=== PATIENT | female | born 1980 | race Hispanic/Latino ===

== ENCOUNTER 2019-01-06 10:16 | Inpatient (IN) | payer OTHER, SELFPAY ==
[2019-01-06 12:12] LABS: Hemoglobin 6.9 g/dL (12.0-16.0); Mean Corpuscular HGB CONC 29.3 g/dL (32.0-36.0); Mean Corpuscular Hemoglobin 17.9 pg (27.0-31.0); Mean Corpuscular Volume 61.3 fL (78.0-98.0); Mean Platelet Volume 4.8 fL (7.4-10.4); Platelet Count 415 thou/uL (130-400); RBC Distribution Width 18.5 % (11.5-14.5); Red Blood Cell (RBC) Count 3.83 mill/uL (4.20-5.40); White Blood Cell (WBC) Count 4.5 thou/uL (4.8-10.8)
[2019-01-06 12:38] LABS: #Lymphocytes 1.7 thou/uL (1.20-3.40); #Monocytes 0.3 thou/uL (0.11-0.59); #Neutrophils 2.4 thou/uL (1.40-6.50); %Basophils 0.7 % (0.0-1.0); %Eosinophils 0.9 % (0.0-10.0); %Lymphocytes 38.7 % (21.0-51.0); %Monocytes 6.9 % (0.0-10.0); %Neutrophils 52.9 % (42.0-75.0); Anion Gap 8 mmol/L (10-20); Anisocytosis SLIGHT = 6-15 cells (100X) (0-5/hpf); BUN (Urea Nitrogen) 5 mg/dL (7.0-18.7); Calc. Creatinine Clearance 0 mL/min (70-130); Calcium 8.8 mg/dL (7.8-10.44); Carbon Dioxide 25 mmol/L (22-29); Chloride 109 mmol/L (98-107); Elliptocytes SLIGHT = 2-5 cells (100X) (0-1/hpf); Estimated GFR-MDRD 90; Glucose 102 mg/dL (70-105); Hypochromia MODERATE=16-30 cells (100X) (0-5/hpf); Iron 12 ug/dL (50-170); Iron Binding Capacity, Total 475 mcg/dL (265-497); MDiff Complete? YES; Microcytosis MODERATE=15-30 cells (100X) (0-5/hpf); Ovalocytes SLIGHT = 2-5 cells (100X) (0-1/hpf); Platelet Morphology Comment Appears Increased; Polychromasia SLIGHT = 2-3 cells (100X) (0-2/hpf); Potassium 3.4 mmol/L (3.5-5.1); Reflex for Review?? YES; Sodium 139 mmol/L (136-145); Tear Drops SLIGHT = 2-5 cells (100X) (0-1/hpf)
[2019-01-06] MEDS ORDERED: Iron Sucrose Complex 200 MG in Sodium Chloride 0.9% 250 ML 250 ML IVPB SCH (15:15)
[2019-01-06] MEDS ORDERED: Ondansetron ODT 4 MG TAB PO PRN (15:15)
[2019-01-06] MEDS ORDERED: Bisacodyl 10 MG SUPP PR PRN (15:15)
[2019-01-06] MEDS ORDERED: Calcium Carbonate 500 MG ChewTAB PO PRN (15:15)
[2019-01-06] MEDS ORDERED: Loperamide HCl 2 MG CAP PO PRN (15:15)
[2019-01-06] MEDS ORDERED: Sodium Chloride 0.65% Nasal 44 ML BOT EA NARE PRN (15:15)
[2019-01-06] MEDS ORDERED: Cepastat Lozenges 1 LOZ PO PRN (15:15)
[2019-01-06] MEDS ORDERED: Acetaminophen 325 MG TAB PO PRN (15:15)
[2019-01-06] MEDS ORDERED: HYDROcodone/Acetaminophen 5/325 mg Tablet PO PRN (15:15)
[2019-01-06] MEDS ORDERED: Senokot S 8.6-50 MG TAB PO PRN (15:15)
[2019-01-06] MEDS ORDERED: Diabetic Tussin 200 MG/10 ML UDCUP PO PRN (15:15)
[2019-01-06] MEDS ORDERED: Loratadine 10 MG TAB PO PRN (15:15)
[2019-01-06] MEDS ORDERED: hydrALAZINE 20 MG/ML VIAL SLOW IVP PRN (15:15)
[2019-01-06] MEDS ORDERED: Zolpidem Tartrate 5 MG TAB PO PRN (15:15)
[2019-01-06] MEDS ORDERED: Artificial Tears 18 DROP/0.9 ML EA EYE PRN (15:15)
[2019-01-06] MEDS ORDERED: Ondansetron PF 4 MG/2 ML Vial IVP PRN (15:15)
[2019-01-06] MEDS ORDERED: Potassium Chloride 20 MEQ TAB PO SCH (15:45)
--- NOTE | 2019-01-06 15:59 | HP ---
PRIMARY CARE PHYSICIAN: [facility]. REASON FOR ADMISSION: Symptomatic anemia. HISTORY OF PRESENT ILLNESS: A 38-year-old female with no significant medical history, who was sent from [facility] for low hemoglobin. The patient reports that for last few weeks, she was feeling dyspnea on exertion, fatigue, tired, dizziness. She was feeling dizzy whenever she was bent over to pick something up and then stand up. She denies any chest pain, palpitation, or syncope. She denies any melena or hematochezia. She also denies any heavy menstrual period. She does have lower abdominal discomfort. She denies any UTI symptoms. The patient is taking iron pills, despite that her hemoglobin has not improved. The patient denies any weight loss. She denies any NSAID abuse. She denies any hematemesis or hematochezia. She does not have any chronic health problems including fever, joint pain, or rash. The patient's primary care physician repeated blood test and she was found with anemia, and today in the emergency room, her hemoglobin is 6.9. The patient is being admitted for further evaluation. REVIEW OF SYSTEMS: CONSTITUTIONAL: Negative for weight loss or gain, ability to conduct usual activities. SKIN: Negative for rash, itching. EYES: Negative for double vision, pain. ENT/MOUTH: Negative for nose bleeding, neck stiffness, pain, tenderness. CARDIOVASCULAR: Negative for palpitations, dyspnea on exertion, orthopnea. RESPIRATORY: Negative for shortness of breath, wheezing, cough, hemoptysis, fever or night sweats. GASTROINTESTINAL: Negative for poor appetite, abdominal pain, heartburn, nausea, vomiting, constipation, or diarrhea. GENITOURINARY: Negative for urgency, frequency, dysuria, nocturia. MUSCULOSKELETAL: Negative for pain, swelling. NEUROLOGIC/PSYCHIATRIC: Negative for anxiety, depression. ALLERGY/IMMUNOLOGIC: Negative for skin rash, bleeding tendency. Please see my HPI for pertinent positives and negatives. All other review of systems reviewed and negative except as mentioned in HPI. ALLERGIES: NO KNOWN DRUG ALLERGIES. CURRENT HOME MEDICATION: Iron one tablet p.o. daily. PAST MEDICAL HISTORY: Chronic iron deficiency anemia, dyslipidemia. PAST SURGICAL HISTORY: x2. PAST PSYCHIATRIC HISTORY: Reviewed and negative. SOCIAL HISTORY: The patient denies any tobacco, alcohol, or illicit drug abuse. FAMILY HISTORY: No family history of coronary artery disease, stroke, or cancer. EMERGENCY ROOM COURSE: Reviewed. PHYSICAL EXAMINATION: VITAL SIGNS: On arrival, blood pressure 110/68, pulse 80, respiratory rate 16, temperature 98.5, saturation 99% on room air. Weight 69 kg. GENERAL: The patient is currently alert and awake, in no obvious acute distress. HEENT: Head; normocephalic and atraumatic. Eyes; conjunctivae are pale, no nystagmus. ENT; oropharynx within normal limits, pale mucous membrane. NECK: Supple. No JVD. No thyromegaly. No carotid bruit. No jugular venous distention. LUNGS: Clear to auscultation without any rhonchi or rales. CARDIAC: S1 and S2, regular. Soft and systolic murmur noted. No gallop. No rub. ABDOMEN: Soft. Bowel sounds present. Nontender. Nondistended. No organomegaly. No mass. No suprapubic tenderness. BACK: Unremarkable. No CVA tenderness. EXTREMITIES: Upper extremities; passive movement of all joints are normal. Lower extremity; no edema, good distal pulsation. SKIN: No skin rash. HEMATOLOGIC: No lymphadenopathy. PSYCHIATRIC: Normal affect. NEUROLOGIC: Nonfocal examination. SIGNIFICANT LABORATORY DATA: CBC; WBC 4.5, hemoglobin 6.9, platelet 415. BMP; sodium 139, potassium 3.4, chloride 109, carbon dioxide 25, BUN 5, creatinine 0.72, glucose 102, and calcium 8.8. Iron 12, TIBC 475, ferritin 2.64. ASSESSMENT AND PLAN: 1. Severe symptomatic anemia. The patient has iron deficiency anemia, most likely chronic blood loss. The patient denies any heavy menstrual period. The patient does not have any classic history of any blood loss. At this point, we will check stool for guaiac. We will consult Gastroenterology for endoscopic evaluation. We will also obtain ultrasound pelvis to rule out uterine fibroid. The patient will be given blood transfusion as well as parenteral iron infusion. Upon discharge, the patient will continue iron supplementation. We will continue with Pepcid 20 mg p.o. b.i.d. We will also check thyroid function test. 2. Hypokalemia. We will replace potassium chloride 40 mEq p.o. daily. 3. Obesity. Dietary education given. Weight loss education given. Healthy lifestyle measure discussed with the patient. 4. Deep venous thrombosis prophylaxis, SCD boots. No Lovenox because of anemia. 5. Gastrointestinal prophylaxis. Pepcid 20 mg p.o. b.i.d. CODE STATUS: The patient is full code. The patient does not have any surrogate decision maker. DISPOSITION PLAN: Based on clinical course, we are expecting the patient to stay in hospital 24 to 48 hours. Plan of care discussed with the patient in detail. Job ID: [id number]
[2019-01-06] MEDS ORDERED: Iron, Sodium Ferric Gluconate 250 MG in Sodium Chloride 0.9% 100 ML IVPB SCH (16:00)
[2019-01-06 16:24] VITALS: BMI 28.7
[2019-01-06] MEDS: Ferrous Sulfate 325 MG TAB PO SCH (17:07)
[2019-01-06] MEDS ORDERED: GoLYTELY 4,000 ml Bottle PO SCH (17:15)
[2019-01-06 18:12] LABS: Bilirubin Negative (Negative); Blood, Urine Small (Negative); Clarity CLEAR (Clear); Glucose, Urine (Dipstick) Negative (Negative); Leukocyte Negative (Negative); Nitrite Negative (Negative); Protein, Urine (Dipstick) Negative (Neg-Trace); Specific Gravity, Urine 1.009 (1.002-1.036); Urobilinogen 0.2 mg/dL (0.2-1.0)
[2019-01-06 18:14] LABS: Bacteria/HPF Rare-Few HPF (None Seen); Hyaline Casts/LPF 0-3 HYALINE CAST LPF (0-3 Hyaline); Squamous Epithelial 0-3 HPF (0-3); WBC/HPF None Seen HPF (0-3)
[2019-01-06] MEDS: Famotidine 20 MG TAB PO SCH (20:06)
--- NOTE | 2019-01-07 00:09 | CON ---
DATE OF CONSULTATION: 01/06/2019 REQUESTING PHYSICIAN: Dr. Jenkins. REASON FOR CONSULTATION: Iron deficiency anemia. HISTORY OF PRESENT ILLNESS: Ms. Shonna Melo is a very pleasant 38-year-old woman with a history of x2. Her last delivery was almost 5 years ago. She has no other significant past medical or surgical history. She says she took iron supplementation for a few months after her last , but otherwise had taken no medications recently. Over the past couple months, she was found to be anemic. She has been taking oral iron supplementation once daily on an outpatient basis for the past couple of months. She reports that her menstrual periods were heavy for about a three month period earlier this year, but for the last 3 months she has had normal menstrual periods lasting only 3 days, not particularly heavy. She denies any overt bleeding from anywhere else. There is no epistaxis. No hematemesis, no melena, no hematochezia, no gross hematuria. Over the past several weeks, she has been having increasing fatigue, dizziness and dyspnea on exertion. There has been no chest pain. No abdominal pain. No food intolerance. No nausea or vomiting. She was found to be anemic at her [facility] today and was sent to the emergency department for further evaluation. Upon arrival, hemoglobin was found to be 6.9, this is microcytic with an MCV of 61.3. Ferritin is low at 2.64, iron 12. She has been hemodynamically stable, otherwise asymptomatic, currently receiving RBC transfusion, resting comfortably. She says she ate only a tiny bit of breakfast this morning and has not had anything since then. She denies any nonsteroidal anti-inflammatory drug abuse and a pelvic ultrasound has been ordered as well as GI consultation. PAST MEDICAL HISTORY: x2, iron deficiency anemia. ALLERGIES: NO KNOWN DRUG ALLERGIES. OUTPATIENT MEDICATIONS: Iron 1 tablet daily. SOCIAL HISTORY: No tobacco, alcohol, or drug use. FAMILY HISTORY: Negative for gastrointestinal illness or malignancy. REVIEW OF SYSTEMS: Full review of systems including constitutional, head, eyes, ears, nose, throat, GI, , cardiovascular, respiratory, musculoskeletal, neurologic systems is negative except as noted in the HPI. I saw the patient today with the assistance of a telemedicine senior php software developer. PHYSICAL EXAMINATION: VITAL SIGNS: Temperature 98.3, pulse 70, blood pressure 114/75, respirations 20 per minute, 100% oxygen saturation on room air. GENERAL: A 38-year-old woman resting in bed comfortably, in no distress. SKIN: She is a bit pale. No jaundice. No rashes were palpable. EYES: No scleral icterus. Extraocular movements intact. ENT: Mucous membranes moist. No oral lesions. LYMPH: No submandibular or supraclavicular lymphadenopathy. THYROID: Nontender to palpation. HEART: Regular rate and rhythm. LUNGS: Clear to auscultation bilaterally. ABDOMEN: Flat bowel sounds, active, soft, nontender to palpation throughout. EXTREMITIES: No peripheral edema. VESSELS: Radial pulses 2+ bilaterally. NEUROLOGIC: Cranial nerves 2-12 intact bilaterally. No focal deficits. LABORATORY STUDIES: Hemoglobin 6.9, MCV 61.3, ferritin 2.64, iron 12, TIBC 475, WBC 4.5, platelets 415, BUN 5, creatinine 0.72. ASSESSMENT AND PLAN: Iron deficiency anemia. The patient has clear severe iron deficiency anemia in the context of intermittently heavy menstrual periods and no primary gastrointestinal symptoms. We discussed possible reasons for iron deficiency anemia. My high suspicion would be that this is secondary to menstrual losses. We do also need to consider the possibility of an occult gastrointestinal bleeding lesion or iron malabsorption, particularly given the persistence of the anemia despite iron supplementation over the past couple of months. My understanding is that she will be having a pelvic ultrasound for some gynecologic workup. For our part, we will plan on endoscopic investigation with EGD and colonoscopy tomorrow after bowel preparation tonight. We will plan to obtain duodenal biopsies on the EGD, to rule out celiac disease. The patient understands and agrees with the plan. Further recommendations following EGD and colonoscopy tomorrow. Please call anytime with questions or concerns. Thank you for the consultation. Job ID: [id number]
[2019-01-07 05:23] LABS: ALT (SGPT) 11 U/L (8-55); AST (SGOT) 14 U/L (5-34); Albumin 3.9 g/dL (3.5-5.0); Alkaline Phosphatase 78 U/L (40-150); Anion Gap 8 mmol/L (10-20); BUN (Urea Nitrogen) 6 mg/dL (7.0-18.7); Bilirubin, Total 1.2 mg/dL (0.2-1.2); Calc. Creatinine Clearance 108 mL/min (70-130); Calcium 8.9 mg/dL (7.8-10.44); Carbon Dioxide 26 mmol/L (22-29); Chloride 108 mmol/L (98-107); Estimated GFR-MDRD 88; Glucose 95 mg/dL (70-105); Potassium 3.6 mmol/L (3.5-5.1); Protein, Total 6.9 g/dL (6.0-8.3); Sodium 138 mmol/L (136-145)
[2019-01-07 05:43] LABS: #Eosinphils 0.1 thou/uL (0.0-0.7); #Lymphocytes 1.6 thou/uL (1.20-3.40); #Monocytes 0.4 thou/uL (0.11-0.59); #Neutrophils 3.2 thou/uL (1.40-6.50); %Basophils 0.7 % (0.0-1.0); %Eosinophils 1.1 % (0.0-10.0); %Lymphocytes 30.1 % (21.0-51.0); %Monocytes 7.3 % (0.0-10.0); %Neutrophils 60.8 % (42.0-75.0); Anisocytosis MODERATE=16-30 cells (100X) (0-5/hpf); Elliptocytes SLIGHT = 2-5 cells (100X) (0-1/hpf); Hypochromia MODERATE=16-30 cells (100X) (0-5/hpf); MDiff Complete? YES; Mean Corpuscular HGB CONC 30.7 g/dL (32.0-36.0); Mean Corpuscular Hemoglobin 19.6 pg (27.0-31.0); Mean Platelet Volume 5.1 fL (7.4-10.4); Platelet Count 376 thou/uL (130-400); Platelet Morphology Comment Appears Adequate; RBC Distribution Width 20.5 % (11.5-14.5); Red Blood Cell (RBC) Count 4.06 mill/uL (4.20-5.40); White Blood Cell (WBC) Count 5.3 thou/uL (4.8-10.8)
[2019-01-07] MEDS ORDERED: Iron Sucrose Complex 200 MG in Sodium Chloride 0.9% 250 ML 250 ML IVPB SCH (09:30)
[2019-01-07] MEDS: Famotidine 20 MG TAB PO SCH ×2 (09:42→19:32)
[2019-01-07] MEDS: Ferrous Sulfate 325 MG TAB PO SCH ×2 (09:42→16:46)
[2019-01-07] MEDS ORDERED: Iron, Sodium Ferric Gluconate 250 MG in Sodium Chloride 0.9% 100 ML IVPB SCH (09:45)
--- NOTE | 2019-01-07 09:51 | ULT ---
US Pelvic W Doppler History: [Anemia. Concern for fibroid.] Comparison: None. Findings: Real-time grayscale and color evaluation of the pelvis was performed transabdominal approac h. Uterus measures 8.8 x 6.7 x 7.6 cm. Right ovary measures 3.4 x 1.7 x 2.9 cm and the left ovary measures 3.2 x 2.7 x 2.9 cm. There is a simple cyst left ovary measuring up to 2.2 cm. No significant free fluid in the pelvis. Within the uterine fundus is a intramural fibroid measuring up to 3.4 cm. Impression: Fundal fibroid measuring up to 3.4 cm. Remainder of the exam is normal.
--- NOTE | 2019-01-07 11:05 | PDOC.PN ---
- Subjective Encounter Start Date: 01/07/19 Encounter Start Time: 07:15 -: old records requested/rev Patient seen and examined. No new complaints. No overnight events - Objective Resuscitation Status - Order Detail: 01/06/19 14:14 Resuscitation Status Routine Resuscitation Status: FULL: Full Resuscitation MAR Reviewed: Yes Vital Signs & Weight: Vital Signs (12 hours) Temp Pulse Resp BP Pulse Ox 01/07/19 09:38 99 01/07/19 07:59 98.0 F 69 20 105/66 99 01/07/19 04:58 98.0 F 70 14 110/74 99 01/07/19 00:17 97.9 F 72 16 110/73 100 Weight Weight 147 lb 3 oz I&O: 01/06/19 01/07/19 01/08/19 06:59 06:59 06:59 Intake Total 710 Output Total 500 Balance 210 Result Diagrams: 01/07/19 04:22 01/07/19 04:22 Radiology Reviewed by me: Yes (uS pelvis noted) Phys Exam - Physical Examination Constitutional: NAD HEENT: PERRLA, moist MMs, sclera anicteric Neck: no JVD, supple Respiratory: no wheezing, no rales, no rhonchi Cardiovascular: RRR, no significant murmur, no rub Gastrointestinal: soft, non-tender, no distention, positive bowel sounds Musculoskeletal: no edema, pulses present Neurological: non-focal, normal sensation, moves all 4 limbs Lymphatic: no nodes Psychiatric: normal affect, A&O x 3 Skin: no rash, normal turgor Dx/Plan (1) Symptomatic anemia Code(s): D64.9 - ANEMIA, UNSPECIFIED Status: Acute (2) Hypokalemia Code(s): E87.6 - HYPOKALEMIA Status: Resolved (3) Iron deficiency anemia due to chronic blood loss Code(s): D50.0 - IRON DEFICIENCY ANEMIA SECONDARY TO BLOOD LOSS (CHRONIC) Status: Chronic (4) Obesity (BMI 30-39.9) Code(s): E66.9 - OBESITY, UNSPECIFIED Status: Chronic (5) Fibroid Code(s): D21.9 - BENIGN NEOPLASM OF CONNECTIVE AND OTHER SOFT TISSUE, UNSP Status: Chronic - Plan cont current plan of care * today EGD and colonoscopy * will give IV iron * plan for discharge tomorrow * medication reviewed as below * symptomatic treatment. * spoke with pt with guyanese interpretor Review of Systems - Review of Systems ENT: negative: Ear Pain, Ear Discharge, Nose Pain, Nose Discharge, Nose Congestion, Mouth Pain, Mouth Swelling, Throat Pain, Throat Swelling, Other Respiratory: negative: Cough, Dry, Shortness of Breath, Hemoptysis, SOB with Excertion, Pleuritic Pain, Sputum, Wheezing Cardiovascular: negative: chest pain, palpitations, orthopnea, paroxysmal nocturnal dyspnea, edema, light headedness, other Gastrointestinal: negative: Nausea, Vomiting, Abdominal Pain, Diarrhea, Constipation, Melena, Hematochezia, Other Genitourinary: negative: Dysuria, Frequency, Incontinence, Hematuria, Retention , Other Musculoskeletal: negative: Neck Pain, Shoulder Pain, Arm Pain, Back Pain, Hand Pain, Leg Pain, Foot Pain, Other - Medications/Allergies Allergies/Adverse Reactions: Allergies Allergy/AdvReac Type Severity Reaction Status Date / Time No Known Allergies Allergy Verified 01/06/19 15:44 Medications: Current Medications Acetaminophen (Tylenol) 650 mg PO Q4H PRN PRN Reason: Headache/Fever/Mild Pain (1-3) Hydrocodone Bitart/Acetaminophen ([place] 5/325) 1 tab PO Q4H PRN PRN Reason: Moderate Pain (4-6) Artificial Tears (Tears Naturale) 2 drop EA EYE PRN PRN PRN Reason: Dry Eyes Bisacodyl (Dulcolax) 10 mg AL DAILYPRN PRN PRN Reason: Constipation Calcium Carbonate (Tums) 1,000 mg PO Q4H PRN PRN Reason: Heartburn or Indigestion Famotidine (Pepcid) 20 mg PO BID [facility] Last Admin: 01/07/19 09:42 Dose: 20 mg Ferrous Sulfate (Feosol) 325 mg PO BID-[facility] Last Admin: 01/07/19 09:42 Dose: 325 mg Guaifenesin (Robitussin Sf) 200 mg PO Q4H PRN PRN Reason: Cough Hydralazine HCl (Apresoline) 10 mg SLOW IVP Q4H PRN PRN Reason: SBP > 180 and HR < 70 Ferric Sodium Gluconate Complex 250 mg/ Sodium Chloride 120 mls @ 60 mls/hr IVPB NOW [facility] Stop: 01/07/19 11:45 Last Admin: 01/07/19 10:22 Dose: 120 mls Loperamide HCl (Imodium) 2 mg PO PRN PRN PRN Reason: Diarrhea/Loose Stools Loratadine (Claritin) 10 mg PO DAILYPRN PRN PRN Reason: Sinus Symptoms Ondansetron HCl (Zofran Odt) 4 mg PO Q6H PRN PRN Reason: Nausea/Vomiting Ondansetron HCl (Zofran) 4 mg IVP Q6H PRN PRN Reason: Nausea/Vomiting Senna/Docusate Sodium (Senokot S) 2 tab PO BID PRN PRN Reason: Constipation Sodium Chloride (Tift Nasal [place] 0.65%) 0 ml EA NARE QIDPRN PRN PRN Reason: Nasal Congestion Throat Lozenges (Cepastat Lozenges) 1 lizzy PO Q2H PRN PRN Reason: Sore Throat Zolpidem Tartrate (Ambien) 5 mg PO HSPRN PRN PRN Reason: Insomnia
[2019-01-07] MEDS ORDERED: Promethazine HCl 25 MG/ML VIAL SLOW IVP PRN (15:23)
[2019-01-07] MEDS ORDERED: Promethazine HCl 25 MG/ML VIAL IM PRN (15:23)
[2019-01-07] MEDS ORDERED: Ondansetron HCl/PF 4 MG/2 ML Vial IVP PRN (15:23)
--- NOTE | 2019-01-07 22:28 | OP ---
DATE OF PROCEDURE: 01/07/2019 CAR SANDER SURGEON: None. PROCEDURES PERFORMED: 1. EGD with biopsies. 2. Colonoscopy, diagnostic. INDICATION: Iron deficiency anemia. MEDICATIONS: See Anesthesia record. FINDINGS: After discussion of the risks, benefits, and alternatives of the procedure, informed consent was obtained and witnessed. Pre-endoscopic cardiopulmonary examination was satisfactory. Time-out was performed before sedation was achieved. Sedation was achieved with Anesthesia assistance in the endoscopy unit. A Pentax adult upper endoscope was placed into the oropharynx and passed through the cricopharyngeus under direct visualization. The esophageal mucosa appeared normal throughout with a normal-appearing Z-line. The endoscope was advanced into the stomach. Forward and retroflexed views of the entire gastric mucosa were obtained. In the gastric fundus, there is an area of mild patchy erythema. This was subtle. There were no erosions or ulcerations noted. No bleeding lesions noted throughout the stomach. I did obtain biopsies from the gastric antrum, body, and fundus to rule out H pylori infection. The endoscope was advanced through the pylorus and into the first and second portions of the duodenum, which appeared normal. I obtained duodenal biopsies to rule out celiac disease. The upper endoscope was completely withdrawn and the patient was repositioned. Digital rectal exam was performed, which was unremarkable. A Pentax adult colonoscope was inserted into the anus and passed forward to the cecum in the usual fashion. The cecal base was identified by the appendiceal orifice, as well as the ileocecal valve. The terminal ileum was intubated and the ileal mucosa appeared normal. The colonoscope was then slowly withdrawn in a gradual and circumferential manner with careful examination of the entire colonic mucosa. The quality of the prep was good. The colonic mucosa appeared completely normal throughout. There was no evidence of any mucosal lesions. No old blood or active bleeding. Retroflexion in the rectum was unremarkable. The colonoscope was completely withdrawn and the patient allowed to recover. The patient tolerated the procedure well. There were no immediate postprocedure complications. IMPRESSION: 1. Mild patchy erythema in the gastric fundus. Biopsied to rule out Helicobacter pylori. 2. Otherwise normal EGD with duodenal biopsies obtained to rule out celiac disease. 3. Normal colonoscopy to the terminal ileum. RECOMMENDATIONS: 1. We will follow up pathology results on the gastric and duodenal biopsies on an outpatient basis, and contact the patient. 2. Regular diet. 3. GI will sign off. Please call back anytime with questions or concerns. Job ID: [id number]
[2019-01-08] MEDS ORDERED: Iron Sucrose Complex 200 MG in Sodium Chloride 0.9% 250 ML 250 ML IVPB SCH (08:15)
[2019-01-08] MEDS ORDERED: Iron, Sodium Ferric Gluconate 250 MG in Sodium Chloride 0.9% 100 ML IVPB SCH (08:15)
[2019-01-08] MEDS: Famotidine 20 MG TAB PO SCH (08:46)
[2019-01-08] MEDS: Ferrous Sulfate 325 MG TAB PO SCH (08:46)
--- NOTE | 2019-01-08 10:32 | DIS ---
DATE OF ADMISSION: 01/06/2019 DATE OF DISCHARGE: 01/08/2019 DISCHARGE DISPOSITION: Home. PRIMARY DISCHARGE DIAGNOSES: Symptomatic anemia, status post transfusion of one unit PRBC; uterine fibroid; hypokalemia, corrected SECONDARY DISCHARGE DIAGNOSES: Iron deficiency anemia due to chronic blood loss and obesity. PRIMARY PROCEDURE/OPERATION: EGD and duodenal and gastric biopsy was done, result is pending to rule out H pylori and celiac disease. Colonoscopy, normal. RADIOLOGICAL INVESTIGATION: Pelvic ultrasound showed uterine fibroid. SIGNIFICANT LABORATORY DATA: Hemoglobin 8.0, WBC 5.3, and platelets are 376. Sodium 138, potassium 3.6, and creatinine 0.73. LFT normal. Ferritin 2.64. Urinalysis, normal. DISCHARGE MEDICATION: Ferrous sulfate 325 mg p.o. b.i.d. CONTRAINDICATION: None. CODE STATUS: Full code. INPATIENT HELP DESK COORDINATOR: Dr. Irineo Manzo was consulted, who did EGD and colonoscopy. Test results pending on discharge. Pathology report from duodenum and gastric. DISCHARGE PLAN: Posthospital, the patient will follow up with primary care physician in one week. HOSPITAL COURSE: A 38-year-old female, who was admitted by me. Please see my HPI for further details. This patient has chronic iron deficiency anemia and she was lately feeling symptoms associated with that. She seen a primary care physician and there, her hemoglobin was very low and that is why she was advised to go to ER. In the emergency room, initial hemoglobin was 6.9. We transfused 1 unit of blood. We also gave her IV iron infusion while in hospital every day. We consulted Gastroenterology and they did EGD and colonoscopy. EGD was unremarkable. Biopsy was obtained to rule out H pylori and celiac. Colonoscopy was normal. We did also ultrasound, which showed uterine fibroid. Overall, the patient did very well while in hospital and today we are discharging with oral iron supplement. I have seen and examined the patient at bedside today. Her vitals are normal. Her physical examination is normal. Discharge instruction given to patient at bedside with interpreter and translator. Job ID: [id number]
[2019-01-08 11:39] VITALS: BP 104/62; TEMP 97.9
== END 2019-01-08 12:38 | disposition home or self-care (01) | DRG 812 ==
LOC: ERS 10:16 → T4-B 15:35
PROVIDERS: ADMIT Emergency Medicine; ATTEND Emergency Medicine
PROC: 30233N1 Transfusion of Nonautologous Red Blood Cells into Peripheral Vein, Percutaneous Approach (ICD-10-PCS; 2019-01-06)
PROC: 0DB98ZX Excision of Duodenum, Via Natural or Artificial Opening Endoscopic, Diagnostic (ICD-10-PCS; principal; 2019-01-07)
PROC: 0DB68ZX Excision of Stomach, Via Natural or Artificial Opening Endoscopic, Diagnostic (ICD-10-PCS; 2019-01-07)
PROC: 0DJD8ZZ Inspection of Lower Intestinal Tract, Via Natural or Artificial Opening Endoscopic (ICD-10-PCS; 2019-01-07)
DX: D50.0 Iron deficiency anemia secondary to blood loss (chronic) (principal); E87.6 Hypokalemia; E66.9 Obesity, unspecified; E78.5 Hyperlipidemia, unspecified; D25.9 Leiomyoma of uterus, unspecified; Z68.28 Body mass index [BMI] 28.0-28.9, adult
CPT/HCPCS: 36415; 36430; 76856; 80048; 80053; 81001; 82728; 83540; 83550; 85025; 85060; 86850; 86900; 86901; 88305; 88312; 93976; J2916; J3490; P9016